=== PATIENT | male | born 1980 | race Caucasian/White ===

== ENCOUNTER 2021-10-10 09:35 | Emergency (ER) | payer OTHER, SELFPAY ==
[2021-10-10 09:37] VITALS: BP 151/98; PULSE 72; RESP 16; TEMP 36.2; O2SAT 100; BMI 28.2
--- NOTE | 2021-10-10 09:50 | CT_ITS ---
STUDY: CT ABDOMEN AND PELVIS WITH CONTRAST REASON FOR EXAM: Male, 41 years old. Mid and lower back pain. History of prostate infection. RADIATION DOSAGE (If Supplied By Facility): CTDIvol = ( 12.40 ) mGy, DLP = ( 853.45 ) mGycm TECHNIQUE: Transaxial images were obtained from the dome of the diaphragm to the symphysis pubis without oral contrast. IV 100mL Isovue-300 was administered. Sagittal and coronal images were reconstructed. Individualized dose optimization techniques were used for this CT. COMPARISON: None. FINDINGS: The visualized lung bases are unremarkable. The visualized portions of the heart are within normal limits. Normal liver. Normal gallbladder and extrahepatic biliary system. Normal spleen. Normal pancreas. Normal bilateral adrenal glands. Normal right kidney. Normal left kidney. There is a small hiatal hernia. Normal small intestine. Moderate amount of fecal material is seen in the colon. The appendix is visualized and appears normal. Normal abdominal aorta. Normal inferior vena cava. Normal retroperitoneum. Normal urinary bladder. There is a small umbilical hernia containing fat. Small benign-appearing bilateral inguinal lymph nodes. Straightening of the normal lumbar lordosis. CT/Abdomen/Pelvis W IV Cont ONLY IMPRESSION: No acute abnormality is seen. Electronically Signed: Amos Cyr MD at 11:09 EDT ,
--- NOTE | 2021-10-10 09:56 | EDS_ITS ---
HPI History of Present Illness Chief Complaint: Flank Pain Informant: patient Narrative Narrative: 41-year-old male presenting to the emergency room with low back pain. Patient states that yesterday he had significant low back pain described as near his midline in the lower lumbar spine. No radiation. He states that he went to an after-hours clinic last Sunday after he had a painful bowel movement and was diagnosed with prostatitis and placed on ciprofloxacin. He states that that has gotten better. He has been urinating. He states that last night he was very uncomfortable with his back. Since arriving in the emergency department he is urinated and states that it feels the back has gotten better. He notes it was painful range of motion. [facility] Medical History Asthma Esophageal stricture Gluten intolerance Hiatal hernia Home Medications ciprofloxacin HCl 500 mg tablet (Cipro) 500 mg PO BID #20 tabs 10/05/21 [Rx Last Taken Unknown] Allergy/AdvReac Type Severity Reaction Status Date / Time No Known Allergies Allergy Verified 10/10/21 09:40 Family History Other Diabetes Heart disease Surgical History S/P arthroscopy of knee Social History (Updated 10/10/21 @ 09:[address] Avery Orozco DO) Smoking Status: Never smoker substance use type: does not use ROS ROS ED Constitutional Constitutional ED: Denies chills, fever(s) or weight loss Eyes Eyes: Denies change in vision or diplopia ENT ENT ED: Denies ear pain, rhinorrhea or sore throat Cardiovascular Cardiovascular: Denies chest pain, orthopnea, palpitations or racing heartbeat Respiratory/Chest Respiratory/Chest: Denies cough, dyspnea or orthopnea Gastrointestinal Gastrointestinal: Denies abdominal pain, diarrhea, nausea or vomiting Genitourinary Genitourinary ED: Reports dysuria and urinary frequency; Denies hematuria Musculoskeletal Musculoskeletal: Reports back pain; Denies arthralgias or myalgias Integumentary Denies abscess or rash Neurologic Neurologic: Denies headache(s) or weakness Psychiatric Psychiatric: Denies anxiety, depression, suicidal ideation or suicidal thoughts Endocrine Endocrinology: Denies polydipsia, polyphagia or polyuria Allergic/Immunologic Allergic/Immunologic ED: Denies mouth swelling, tongue swelling or urticaria EXAM Physical Exam Const Vital Signs: 10/10/21 09:37 Temperature 97.2 F L Temperature Source Temporal Pulse Rate 72 Respiratory Rate 16 Blood Pressure 151/98 H Blood Pressure Mean 115 Pulse Ox 100 Oxygen Delivery Method Room Air Positive well nourished and well developed General Appearance ED: well developed HEENT Reports normocephalic, head/scalp atraumatic and moist mucous membranes Eyes PERRL and EOMs intact bilaterally Neck no lymphadenopathy, supple and no JVD Resp normal respiratory effort and clear to auscultation bilaterally Cardio regular rate, regular rhythm and no murmurs GI normal to inspection, nondistended, normoactive bowel sounds and non-tender Palpation: soft Back/Spine no CVA tenderness and normal ROM Extremity normal to inspection General Extremety ED: Negative for edema General Extremity: Negative for edema Neuro oriented x3 and CN's II-XII intact bilaterally Sensorium / Orientation: alert Motor Exam: strength 5/5 throughout Psych mental status grossly normal Mood & Affect: Negative for depressed or tearful Skin no rashes or lesions noted and no wounds MDM MDM MDM Narrative Medical decision making narrative: White count is 5 BMP is normal urinalysis is normal. CT of the abdomen pelvis with IV contrast was obtained and is read as normal. Patient developed chest tightness throat tightness and some scattered hives after the contrast. His oxygen levels fell to around 90% but have come back up. His lung sounds are clear. He is handling his secretions normally. He does not wish any medication at this time for the allergy. I do not have a clear explanation for his symptoms. I did do a rectal exam which showed a nontender normal feeling prostate. Patient to continue his antibiotics return if worsening or concerns Lab Data Attestation: I reviewed the patient's lab results. Labs: Laboratory Results - last 24 hr 10/10/21 10/10/21 10/10/21 10:00 10:00 10:00 WBC 5.0 RBC 5.52 Hgb 16.4 Hct 47.8 MCV 86.6 MCH 29.7 MCHC 34.3 RDW Std Deviation 37.0 RDW Coeff of Jenny 11.7 Plt Count 318 MPV 8.9 Immature Gran % (Auto) 0.200 Neut % (Auto) 51.8 Lymph % (Auto) 33.4 Rock % (Auto) 7.0 Eos % (Auto) 6.2 H Baso % (Auto) 1.4 H Absolute Neuts (auto) 2.6 Absolute Lymphs (auto) 1.68 Nucleated RBC % 0 Sodium 139 Potassium 3.9 Chloride 105 Carbon Dioxide 30.0 Anion Gap 4 L BUN 11 Creatinine 1.11 Estim Creat Clear Calc 103.88 Est GFR (MDRD) Af Amer 95 Est GFR (MDRD) Non-Af 78 BUN/Creatinine Ratio 9.9 L Glucose 96 Calcium 9.7 Urine Color Straw Urine Clarity Clear Urine pH 6.0 Ur Specific [place] 1.010 Urine Protein Negative Urine Glucose (UA) Normal Urine Ketones Negative Urine Occult Blood Negative Urine Nitrite Negative Urine Bilirubin Negative Urine Urobilinogen Normal Ur Leukocyte Esterase Negative Urine RBC 0 SEEN Urine WBC 0 SEEN Ur Squamous Epith Cells 0 SEEN Urine Bacteria 0 SEEN Urine Mucus 0 SEEN Radiography Diagnostic Testing: Clinical Impression(s) from Imaging Studies Abdomen/Pelvis CT 10/10/21 09:50 IMPRESSION: No acute abnormality is seen. Electronically Signed: Amos Cyr MD at 11:09 EDT , Discharge Plan Triage Chief Complaint: Flank Pain ED Provider: Avery Orozco Dx/Rx/DC Orders Clinical Impression: Back pain, Acute prostatitis, Allergic reaction to contrast dye Instructions: ED Drug Reaction, Other, ED Prostatitis Prescriptions: No Action ciprofloxacin HCl [Cipro] 500 mg tablet 500 mg PO BID Qty: 20 0RF Referrals: Aguila Rojas MD [Med Staff - Active Staff] - As soon as possible Disposition Disposition: Home, Self Care
[2021-10-10 10:06] LABS: Absolute Lymphocyte Count 1.68 X10^3/uL (0.83-4.51); Absolute Neutrophil Count 2.6 X10^3/uL (2.0-7.7); Basophil# 0.07 X10^3/uL; Basophil% 1.4 % (0-1); Eosinophil# 0.31 X10^3/uL; Eosinophils% 6.2 % (0-5); Hematocrit 47.8 % (40-54); Hemoglobin 16.4 g/dL (13.0-16.5); Lymphocyte # 1.68 X10^3/ul (0.83-4.51); Lymphocyte % 33.4 % (19-41); Mean Corp Hgb Conc 34.3 g/dL (32-36); Mean Corpuscular Hgb 29.7 pg (27.0-32.0); Mean Corpuscular Volume 86.6 fL (80-94); Mean Platelet Vol. 8.9 fl (6.2-12.0); Monocyte# 0.35 X10^3/uL; NRBC Flagged by Analyzer 0 % (0-5); Neutrophil # 2.61 X10^3/uL (2.7-7.7); Neutrophil % 51.8 % (47-70); Platelet Count 318 K/mm3 (150-450); RBC Distribution Width CV 11.7 % (11.6-14.6); Red Blood Count 5.52 M/mm3 (4.6-6.2)
[2021-10-10 10:07] LABS: Bacteria 0 SEEN /hpf (None Seen); Mucous, Urine 0 SEEN /hpf (<or=2+); Red Blood Cells-Urine 0 SEEN /hpf (0-5); Squamous Epithelial Cells - UA 0 SEEN /hpf (0-5); White Blood Cells 0 SEEN /hpf (0-5)
[2021-10-10 10:12] LABS: Color, Urine Straw (Yellow); Glucose, Dipstick Normal (Normal); Ketone-Dipstick Negative (Negative); Leukocyte Esterase-Dipstick Negative /ul (Negative); Nitrite-Dipstick Negative (Negative); Occult Blood-Urine Negative /ul (Negative); Protein-Dipstick Negative (Negative); Urine Bilirubin Dipstick Negative (Negative); Urine Clarity Clear (Clear); Urine Urobilinogen Normal (Normal)
[2021-10-10 10:21] LABS: Anion Gap 4 (5-15); BUN 11 mg/dL (7-18); BUN/Creat Ratio 9.9 RATIO (10-20); Calcium,Total 9.7 mg/dL (8.5-10.1); Chloride 105 mmol/L (98-107); Creatinine, Serum 1.11 mg/dL (0.70-1.30); EST Glomerular Filtration Rate 78 mL/min (>60); Est Glom Filt Rate - Afr Amer 95 mL/min (>60); Estimated Creatinine Clearance 103.88 ml/min; Glucose 96 mg/dL (74-106); Potassium 3.9 mmol/L (3.5-5.1); Sodium Level 139 mmol/L (136-145)
--- NOTE | 2021-10-10 10:30 | ED.RN ---
This nurse notified by [employer] that patient stopped them in hallway complaining of tightness in chest and trouble breathing feeling wheezy which began after CT scan with IV contrast dye. Patient noted to be 93% by [employer] after they placed patient on monitor. On evaluation of patient by this nurse, patient was noted to be 90-91% RA with HR in 80's. Complaining of tightness of breath, and feelings of wheezing no audible wheezing noted on posterior or anterior lung martinez. Patient placed on 2 lpm at this time and physician notified of patient complaints. SpO2 at 95% following oxygen placement.
--- NOTE | 2021-10-10 11:37 | CM.ED ---
SW Note SW met with patient as per ED tracker patient has no PCP. Patient confirmed he has no PCP. Patient was provided with Healthcare Provider Directory and encouraged to contact a PCP. No other issues or concerns voiced. SW remains available if needs arise. Anabelle HEATH
[2021-10-10 11:43] VITALS: BP 118/90; PULSE 64; RESP 16; O2SAT 96
== END 2021-10-10 11:45 | disposition home or self-care (01) ==
PROVIDERS: Emergency Provider Emergency Medicine; Visit Provider Emergency Medicine
DX: N41.0 Acute prostatitis (principal); M54.50 Low back pain, unspecified; J45.909 Unspecified asthma, uncomplicated; R07.89 Other chest pain; L50.9 Urticaria, unspecified; T50.8X5A Adverse effect of diagnostic agents, initial encounter; Y92.239 Unspecified place in hospital as the place of occurrence of the external cause
CPT/HCPCS: 74177; 80048; 81001; 85025; 99283; Q9967; A4216